=== PATIENT | male | born 1995 | race Caucasian/White ===

== ENCOUNTER 2022-09-16 21:19 | Emergency (ER) | payer BC ==
[~2022-09-16] VITALS: Ht 177.8 cm; Wt 86.2 kg
[~2022-09-16 21:19] MED LIST: CEPH500 PO; HYDR1TAB94 PO
[2022-09-16 21:29] VITALS: BP 119/83
== END 2022-09-16 22:56 | disposition home or self-care (01) ==
LOC: ER 21:19
DX: S01.412A Laceration without foreign body of left cheek and temporomandibular area, initial encounter (principal); W22.8XXA Striking against or struck by other objects, initial encounter; Y93.51 Activity, roller skating (inline) and skateboarding
CPT/HCPCS: 12013; 99282-25